=== PATIENT | male | born 1960 | race Caucasian/White ===

== ENCOUNTER 2019-10-11 09:09 | Emergency (ER) | payer MEDICAID, SELFPAY ==
[2019-10-11 09:20] VITALS: BP 145/87; PULSE 62; TEMP 36.6; O2SAT 98
--- NOTE | 2019-10-11 10:07 | DI.RAD_ITS ---
EXAM: XR RIBS LT W PA LAT CHEST CLINICAL HISTORY: fall/pain TECHNIQUE: COMPARISON: CR CHEST 2 VIEWS PA,LAT from 03/14/2016 FINDINGS: PA and lateral chest and multiple views of the left ribs were obtained. Note is made of an old unhea led right 8th rib fracture. No evidence of acute left rib fracture. Lungs are clear and well expanded except for minimal atelect asis at left lung base. No pleural effusion seen. No pneumothorax. IMPRESSION: No evidence of acute abnormality. RADIATION DOSE DELIVERED: Total DLP
--- NOTE | 2019-10-11 10:43 | ED.GENADUL_ITS ---
Discharge Plan Disposition Patient Disposition: HOME Condition: Stable Discharge Details Chief Complaint: Chest/Rib Clinical Impression: Contusion of ribs Primary Care Provider: Tres Mccauley ED Provider: Piter Alvarenga Home Meds and New Rx's Prescriptions: New oxycodone-acetaminophen [Percocet] 5-325 mg tablet 1 tab PO Q8H PRNQty: 8 RF: 0 No Action No Known Home Meds RF: 0 Discharge Instructions Instructions: Rib Contusion (ED) Additional Instructions: As we discussed x-ray was unremarkable but a subtle fracture could still be present. Use incentive spirometer as directed to avoid developing pneumonia. Percocet as directed, may cause drowsiness and/or constipation. Consider taking [id number] stool softener while taking pneumonia. You may use waao-yir-kztfkah anti-inflammatory medication such as Motrin as directed for symptomatic control. Please watch for new or worsening symptoms and return to the ER for any concerns. I do recommend reaching out your primary care provider later today or tomorrow for prompt outpatient reevaluation Medical Decision Making 58-year-old gentleman presents for evaluation status post fall yesterday while standing on a chair, sustaining a fall down to the ground but for struck the chair in the process. Complains of left lateral and posterior chest wall discomfort. He reports the pain is moderate at rest, worse with movement or deep breathing. He does appear uncomfortable with movement although he is n ontoxic-appearing. Blood pressure 145/87, O2 sat 98% room air, pulse in the 60s. He has diffuse discomfort over his ribs but no point tenderness over one specific rib or any crepitus. Extremely low suspicion for pneumothorax. He denies striking his head, LOC, neck pain, abdominal pain, numbness, tingling, weakness. There is not appear to be any distracting injury. Will obtain x-ray of his left ribs and chest for evaluation of bony abnormality and/or pneumothorax. Patient comfortable with this plan X-ray initially read by me and then confirmed by radiology as no acute abnormality. Discussed x-ray findings with patient. He is relieved. We discussed that subtle rib fractures can certainly be challenging to see on a plain film and that if his symptoms persist he may need repeat films and/or outpatient CT. He was given an incentive spirometer with teaching. We discussed analgesia, will provide 8 tablets of Lortab recommend zqtt-yux-fbuizsx anti-inflammatories, and recommend prompt outpatient follow-up through his primary care provider. He was encouraged to return to the ER for new or worsening symptoms. Medical Records Medical records reviewed: Yes I reviewed the patient's medical records. HPI General Mode of arrival: ambulatory . Date/Time Provider Initiated Documentation: 10/11/19 09:20 . Limitations to Documentation: no limitations . Information obtained by: patient . HPI Narrative: This is a 58-year-old gentleman who denies significant past medical history. He presents reporting left rib discomfort. Yesterday evening he was standing on a chair attempting to do some work, slipped, falling down to the ground or for struck the left side of his ribs on the chair. He reports that the pain is moderate at rest but worse with movement, engaging his core, or taking a deep breath. He sustained an abrasion to his right forearm as well. He denies striking his head, loss of consciousness, neck pain, visual changes, chest pain, shortness of breath no abdominal pain, nausea, vomiting, numbness, tingling, weakness, incontinence. He reports to me that he is primarily concerned about the potential for broken ribs. Related Data Home Medications Medication Instructions Recorded Confirmed Unknown [No Known Home Meds] 03/14/16 10/11/19 oxycodone-acetaminophen [Percocet] 1 tab PO Q8H PRN #8 tab 10/11/19 Previous Rx's Medication Instructions Recorded oxycodone-acetaminophen [Percocet] 1 tab PO Q8H PRN #8 tab 10/11/19 Allergies Allergy/AdvReac Type Severity Reaction Status Date / Time No Known Allergies Allergy Unverified 10/11/19 09:26 General Stated Complaint: Chest/Rib ABDON: 3 Review of Systems Constitutional Constitutional: Denies fever(s), Denies headache(s) and Denies weakness Eyes Eyes: Denies change in vision ENT Ears, Nose, Mouth, and Throat: Denies headache(s) and Denies neck pain Cardiovascular Cardiovascular: Denies chest pain and Denies dyspnea Respiratory Respiratory: Denies cough and Denies dyspnea Gastrointestinal Gastrointestinal: Denies abdominal pain, Denies nausea and Denies vomiting Genitourinary Genitourinary: Denies dysuria Musculoskeletal Musculoskeletal: Reports back pain, Denies neck pain, Denies numbness and Denies tingling Integumentary/Breasts Skin/Breast: Denies rash Neurologic Neurologic: Denies headache(s), Denies numbness, Denies tingling and Denies weakness [facility] Social History Smoking/Tobacco Use Status: Current every day Tobacco Type: cigarettes Alcohol Intake: never Drug use: Never Substance use type: does not use Do you feel safe at home: Yes Do you feel safe in your relationship?: Yes Exam Const General: cooperative, healthy appearing, no acute distress and in distress mild (With movement or engaging his core, appears uncomfortable) Orientation: alert, awake and oriented x3 HENMT Head: normal to inspection, normocephalic and atraumatic Ears: hearing grossly normal bilaterally General nose exam: external nose normal Face and sinus: normal facial exam Mouth: moist mucous membranes Eyes Conjunctivae: conjunctivae normal Sclera: sclerae normal Neck Neck: normal visual inspection, full ROM, trachea midline, supple and nontender Chest Chest: normal inspection of the chest, no crepitus, tenderness rib left posterio r-axillary line involving the 6th rib, involving the 7th rib, involving the 8th rib, involving the 9th rib and involving the 10th rib and other (No erythema or ecchymosis.) Resp Effort & Inspection: normal respiratory effort and able to speak in complete sentences Auscultation: clear to auscultation bilaterally Cardio Rate: regular rate Rhythm: regular rhythm GI Palpation: soft and nontender Back/Spine/Pelvis Back: no CVA tenderness and back tenderness (Left thoracic region, diffuse, no midline tenderness) Cervical Spine: normal cervical lordosis, cervical ROM normal and No pain with cervical ROM Thoracic/Lumbar Spine: thoracic and lumbar spine normal to inspection and No thoracic spinal tenderness Pelvis: no pain with anterior-posterior compression and no pain with lateral compression Skin General skin exam: no rashes or lesions noted Trauma: abrasion (Right forearm) Neuro General: patient alert, patient awake, patient oriented x3, moves all extremities and no focal motor deficits Cognition: normal cognition Speech: speech normal Gait: normal gait Motor: muscle tone normal throughout and strength 5/5 throughout Sensory Exam: no sensory deficits noted Extrem General: normal to inspection (Other than abrasion already stated), full ROM and capillary refill normal Psych Appearance: grossly normal Mental Status: mental status grossly normal Course Vital Signs Vital signs: Vital Signs Temperature 36.6 C 10/11/19 09:20 Pulse 62 10/11/19 09:20 Blood Pressure 145/87 H 10/11/19 09:20 Pulse Oximetry 98 10/11/19 09:20 Temperature 36.6 C 10/11/19 09:20 Temperature Source Temporal Artery Scan 10/11/19 09:20 Pulse 62 10/11/19 09:20 Respiratory Effort Non-Labored 10/11/19 09:24 Blood Pressure 145/87 H 10/11/19 09:20 Blood Pressure Position Sitting 10/11/19 09:20 Pulse Oximetry 98 10/11/19 09:20 Oxygen Delivery Method Room Air 10/11/19 09:20 Oxygen Flow Rate 0 10/11/19 09:20 Pain Level 10 10/11/19 09:20
== END 2019-10-11 11:02 | disposition home or self-care (01) ==
PROVIDERS: Emergency Provider Physician Assistant; PCP Family Medicine
DX: S20.212A Contusion of left front wall of thorax, initial encounter (principal); W07.XXXA Fall from chair, initial encounter
CPT/HCPCS: 99284; 71046; 71100; 99283

== ENCOUNTER 2020-07-23 12:46 | Emergency (ER) | payer MEDICAID, SELFPAY ==
[2020-07-23 12:52] VITALS: BP 113/89; PULSE 99; RESP 18; TEMP 37.1; O2SAT 96
--- NOTE | 2020-07-23 13:13 | W.ED.GENAD ---
Discharge Plan Disposition Patient Disposition: HOME Condition: Stable Discharge Details Clinical Impression: Puncture wound of left palm Primary Care Provider: Tres Mccauley ED Provider: Jessica Zelaya Home Meds and New Rx's Prescriptions: No Action No Known Home Meds RF: 0 Discharge Instructions Instructions: Puncture Wound (ED), Steristrips (ED) Additional Instructions: At this time Steri-Strips have been applied and wound will heal on its own. If you have another laceration please come in before 8 to 12 hours for possible suture repair. Please be seen sooner for any signs of infection including increased redness, swelling, red streaks going up your hand, drainage, foul odor or severe increased pain. Keep clean and dry. Allow wound to air dry at least 2 hours a day. No soaking. May wash under running soap and water once daily. Referrals: Tres Mccauley [Primary Care Provider] - Discharge Data Discharge Date/Time-TO BE ENTERED AT DEPARTURE: 07/23/20 13:32 Medical Decision Making 59-year-old male presents to the ER with a left palm puncture wound which occurred 24 hours ago accidentally while grabbing some knives. Patient presents with Band-Aid and electrical tape in place. Bleeding is controlled at this time. Upon initial exam the wound edges are beginning to be macerated with the increased moisture. No visualized foreign body, patient has full range of motion of and all fingers. Distal circulation sensation movement intact. Intact point discrimination and opposition. At this time I do not feel that suturing is appropriate due to increased risk of infection. Wound is greater than or equal to 24 hours old. Wound has begun healing by secondary intention. Wound was extensively irrigated and cleaned with chlorhexidine scrub by myself and social staff worker. Laceration was anesthetized using 1% lidocaine with epi prior to cleaning for patient comfort. Steri-Strips applied and clean dressing placed. Patient instructed on home care, verbalized understanding. Discuss strict return instructions to return for any signs of infection. This text was generated using [employer] system, please disregard any oddities of phrase or misspellings. HPI General Mode of arrival: ambulatory. Date/Time Provider Initiated Documentation: 07/23/20 13:02. Limitations to Documentation: no limitations. Information obtained by: patient. HPI Narrative: 59-year-old male presents to the ER chief complaint of left palm puncture wound which occurred yesterday afternoon approximately 24 hours prior to arrival. States he was doing dishes when his hand slipped hitting a steak knife puncturing the thenar eminence just below the base of his left thumb on the palmar side. He covered it with a Band-Aid and some electrical tape. Bleeding is controlled upon arrival. Patient is declining tetanus vaccination at this time. Full range of motion noted on exam. Related Data Home Medications Medication Instructions Recorded Confirmed Unknown [No Known Home Meds] 03/14/16 07/23/20 Allergies Allergy/AdvReac Type Severity Reaction Status Date / Time No Known Allergies Allergy Unverified 07/23/20 12:58 General Stated Complaint: Laceration ABDON: 4 Review of Systems All systems reviewed & are unremarkable except as noted in HPI and below Integumentary/Breasts Skin/Breast: Reports wounds (Left palm puncture wound occurred 24 hours ago) [facility] Social History Smoking/Tobacco Use Status: Current every day Tobacco Type: cigarettes Smoking risk assessment performed?: Yes Alcohol Intake: never Drug use: Never Substance use type: does not use Do you feel safe at home: Yes Do you feel safe in your relationship?: Yes Exam Extrem Left upper extremity: full ROM, normal capillary refill and hand Details: neuromotor exam normal, foreign body (None visualized) and puncture wound; no crepitus Hand/finger images: 1. Stellate puncture wound noted to the left thenar eminence just at the base of the left thumb. Full range of motion noted to the thumb. Point discrimination intact. Cap refill less than 2 seconds. No other injuries noted. Course Vital Signs Vital signs: Vital Signs Temperature 37.1 C 07/23/20 12:52 Pulse 99 H 07/23/20 12:52 Respiratory Rate 18 07/23/20 12:52 Blood Pressure 113/89 07/23/20 12:52 Pulse Oximetry 96 07/23/20 12:52 Temperature 37.1 C 07/23/20 12:52 Temperature Source Temporal Artery Scan 07/23/20 12:52 Pulse 99 H 07/23/20 12:52 Respiratory Rate 18 07/23/20 12:52 Respiratory Effort Non-Labored 07/23/20 12:57 Blood Pressure 113/89 07/23/20 12:52 Blood Pressure Position Sitting 07/23/20 12:52 Pulse Oximetry 96 07/23/20 12:52 Oxygen Delivery Method Room Air 07/23/20 12:52 Oxygen Flow Rate 0 07/23/20 12:52 Pain Level 10 07/23/20 12:52
== END 2020-07-23 13:32 | disposition home or self-care (01) ==
PROVIDERS: Emergency Provider Registered Nurse Emergency; PCP Family Medicine
DX: S61.432A Puncture wound without foreign body of left hand, initial encounter (principal); W26.0XXA Contact with knife, initial encounter
CPT/HCPCS: 99282

== ENCOUNTER 2022-09-07 19:01 | Emergency (ER) | payer MEDICAID, SELFPAY ==
[2022-09-07 19:13] VITALS: BP 135/75; PULSE 82; RESP 14; TEMP 36.5; O2SAT 98
--- OUTSIDE RECORDS SUMMARY | 2022-09-07 19:18 | XMS_ITS | Continuity of Care Document ---
Author Name Unknown Organization [facility] Address [address] [place] [address] Care Team Providers Care Story Teller Name Role Phone Tres Chen DO Primary Care Physician Encounter [facility] FIN NBR [id number] Date(s): 06/05/22 - 06/05/22 [facility] [address] [place] [address]- Discharge Disposition: Home or Self Care Attending Physician: IRINA Wiley Admitting Physician: IRINA Wiley Allergies, Adverse Reactions, Alerts No Known Medication Allergies Medications albuterol 90 mcg/inh aerosol inhaler See Instructions, PRN as needed for wheezing, takes 2 puffs as needed for sob due to COPD, 0 Refill(s) Start Date: 06/05/22 Status: Ordered Problem List Condition Confirmation Course Effective Dates Status Health St atus Informant Fracture 1 Confirmed 10/2010 Active S/P foot surgery, left 2 Confirmed 06/2015 Active H/O left knee surgery Confirmed Active H/O right knee surgery 3 Confirmed Active Inguinal hernia Confirmed Active Recurrent hernia Confirmed Active Rotator cuff tear 4 Confirmed 04/24/14 Active 1fx ribs and punched lung at work 2left foot surgery- bone spurs 3right knee cartilage repair 4left rotator cuff / biceps muscle repair Procedures Procedure Date Related Diagnosis Body Site Status Inject kidney - local action 11/2019 Completed Rotator cuff repair 1 04/23/14 Com pleted Dx Laparoscopy and recurrent Hernia Repair 2 06/26/11 Completed Colonoscopy 3 Completed Knee surgery, left Comple edgar Laparoscopic repair of ingui nal hernia 4 Completed Right Knee Cartilage Repair Completed 1left rotator cuff / biceps muscle repair 2Dr [place] 3colonoscopy 3 yrs ago 4Dr [place] Results Radiology Reports * Exam Date Time Procedure Performing Provider Status 06/05/22 9:48 AM XR Foot Complete 3+ Views Left Chrissy Lafleur rn; Auth (Verified) Notes: (XR Foot Complete 3+ Views Left) Reason For Exam: pain in foot and toes left XR Foot Complete 3+ Views Left EXAM DESCRIPTION: XR Foot Complete 3+ Views Left 06/05/2022 INDICATION: PAIN IN FOOT AND TOES LEFT COMPARISON: 03/21/2015 IMPRESSION: No acute fracture or dislocation First MTP joint osteoarthritic changes with joint space narrowing, osteophyte formation and mild subchondral cyst formation, worse since prior study. Otherwise no significant regional arthritic changes Small punctate opacity overlying the distal 5th toe suspicious for small foreign body. JOB #: [id number] Final Signed by: Gabino Cooper MD Signed (Electronic Signature): 06/05/2022 10:00 am Social History Social History Type Response Tobacco Current everyday tob acco user Tobacco Use:. 1/2-1ppd per day. Sex XR Foot - left GE 3 Views * Gabino Cooper MD: VERIFY, VERIFY Event Display: Report EXAM DESCRIPTION: XR Foot Complete 3+ Views Left 06/05/2022 INDICATION: PAIN IN FOOT AND TOES LEFT COMPARISON: 03/21/2015 IMPRESSION: No acute fracture or dislocation First MTP joint osteoarthritic changes with joint space narrowing, osteophyte formation and mild subchondral cyst formation, worse since prior study. Otherwise no significant regional arthritic changes Small punctate opacity overlying the distal 5th toe suspicious for small foreign body. JOB #: [id number] Final Signed by: Gabino Cooper MD Signed (Electronic Signature): 06/05/2022 10:00 am Patient Care team information Care Team Personnel Name: Tres Chen DO Position: Physician Member Role: Primary Care Physician Address: Address: [address] [place] [phone] [place]
--- OUTSIDE RECORDS SUMMARY | 2022-09-07 19:18 | XMS_ITS | Continuity of Care Document ---
Author Name Unknown Organization [facility] Address [address] [place] [address] Care Team Providers Care Printed Circuit Boards Inspector Name Role Phone Tres Chen DO Primary Care Physician [phone] Encounter [facility] [facility] NBR [id number] Date(s): 06/05/22 - 06/05/22 [facility] [address] [place], [place] [address] Encounter Diagnosis Pain in unspecified toe(s)(Discharge Diagnosis) - 06/05/22 Pain of foot and toes(Discharge Diagnosis) - 06/05/22 Discharge Disposition: Home or Self Care Attending Physician: IRINA Wiley Allergies, Adverse Reactions, Alerts No Known Medication Allergies Functional Status 06/05/22 Other exposure to Infectious Disease Non e Medications albuterol 90 mcg/inh aerosol inhaler See [...] rotator cuff / biceps muscle repair 2Dr Mingo 3colonoscopy 3 yrs ago 4Dr [place] Vital Signs Most recent to oldest [Reference Range]: 1 Peripheral Pulse Rate [60-100 bpm] 75 bp m (06/05/22 8:50 AM) Blood Pressure [90-140/60-90 mmHg] 128/8 0mmHg (06/05/22 8:50 AM) Weight 84.9 kg (06/05/22 8:50 AM) Weight Measured (lbs) 187.172 lb (06/05/22 8:50 AM) [place] Body Weight Calculated 64.37 kg (06/05/22 8:50 AM) Height 168.27 cm (06/05/22 8:50 AM) Height/Length Measured (inches) 66.25 in ch (06/05/22 8:50 AM) BSA Measured 1.99 m2 (06/05/22 8:50 AM) Body Mass Index 29.98 kg/m2 (06/05/22 8:50 AM) Social History Social History Type Response Tobacco Current everyday tob acco user Tobacco Use:. 1/2-1ppd per day. Sex Hospital Discharge Instructions Follow Up Care 05/30/2022 16:29:31 With:IRINA Wiley Address: [address] [place] [phone] When: only if needed Physician Outpatient Note * IRINA Wiley: PERFORM Event Display: Office Clinic Note Physician Authored Date: [id number] JAMIR GROSS :1960 Age:61 years Sex:Male Visit Date:06/05/2022 Primary Care Physician: Tres Chen DO Chief Complaint Requesting a referral to [facility] for left pain. ??Had surgery on lefback in 2016. ??Shortly after surgery he states he stubbed his left big toe on a rock and thought he maybe he had broken it.??Never followed up with podiatry. ??Pain has gotten worse. History of Present Illness Patient indicates visit for left foot pain since 6-7 years. He had surgery for bone spurs and arthritis about 7 years ago. His pain has increased and he requests referral to podiatry for possible surgical repair. ?? He has had multiple surgeries on his knees, shoulders. Review of Systems Constitutional:?No??fevers,?No??chills,?No??sweats ?? Musculoskeletal:??No??back pain,??No??neck pain,??Positive for??joint pain,??Positive for??muscle pain,??Positive for??decreased range of motion left foot and toes Integumentary:?No??rash,?No??pruritus,?No??abrasions Neurologic: Alert & oriented X 4 Psychiatric:?No??anxiety,?No??depression Physical Exam Vitals & Measurements HR:??75??(Peripheral)?? BP:??128/80?? SpO2:??97%?? HT:??168.27??cm?? WT:??84.9??kg?? BMI:??29.98?? BSA:??1.99?? General: Alert and oriented, well nourished,?No??acute distress ?? Musculoskeletal:?Abnormal?? range of motion and strength,?Positive for??tenderness,?Positive for??swelling?? left foot and toes Skin: Skin is warm, dry and pink,?No??rashes,?No??lesions Neurologic: Awake, alert and oriented X4, Psychiatric: Cooperative, appropriate mood and affect Assessment/Plan 1.??Pain of foot and toes??M79.672 Ordered: XR Foot Complete 3+ Views Left, 06/05/22, Routine, Reason: pain in foot and toes left, Transport Mode: Ambulatory, Pain of foot and toes ?? Pain in unspecified toe(s)??M79.676 ?? Future Orders XR Foot Complete 3+ Views Left, 06/05/22, Routine, Reason: pain in foot and toes left, Transport Mode: Ambulatory, Pain of foot and toes Referral Orders Referral Management, Medical Service: Podiatry, Reason: ongoing pain in left foot, previous surgery done at [facility] podiatry, Start: 06/05/22, Urgent:, Instructions: Dr Bess[facility]. Follow Up Instructions With When Contact Information IRINA Wiley Only if needed [address] [place] [address] Additional Instructions: Problem List/Past Medical History Ongoing Fracture H/O left knee surgery H/O right knee surgery Inguinal hernia Recurrent hernia Rotator cuff tear S/P foot surgery, left Historical No qualifying data Procedure/Surgical History ???Inject kidney - local action (11/2019)???Rotator cuff repair (04/24/2014)???Dx Laparoscopy and recurrent Hernia Repair (06/27/2011)???Colonoscopy???Knee surgery, left???Laparoscopic repair of ingui nal hernia???Right Knee Cartilage Repair Medications albuterol 90 mcg/inh aerosol inhaler, See Instructions, PRN Allergies No Known Medication Allergies Social History Alcohol Never Electronic Cigarette/Vaping Electronic Cigarette Use: Never. Tobacco Current everyday tobacco user Tobacco Use:. 1/2-1ppd per day. Family History Diabetes mellitus: Mother. [place] - myocardial infarction: Mother and Father. Family Member(s): ?? FATHER, at age: 78 Years. Cause of : [place] Electronically Signed on 06/05/22 09:38 AM IRINA Wiley Patient Care team information Care Team Personnel Name: Tres Chen DO Position: Physician Member Role: Primary Care Physician Address: Address: [address] [place] [phone] [place]
--- NOTE | 2022-09-07 20:24 | ED.GENADUL_ITS ---
Discharge Plan Disposition Patient Disposition: Home Discharge Details Clinical Impression: Abrasion of cornea, right, Eyelid laceration, right Primary Care Provider: Tres Mccauley ED Provider: Hosea Souza Home Meds and New Rx's Prescriptions: No Action albuterol sulfate [ProAir HFA] 90 mcg/actuation HFA aerosol inhaler 2 puff inhalation Q6H PRN Discharge Instructions Instructions: Corneal Abrasion (ED), Care For Your Absorbable Stitches (ED) Additional Instructions: Please keep the area clean and dry. Monitor closely for any redness, drainage or discharge. Absorbable sutures will come out on their own in 10 to 12 days. If they have not you can gently rub warm soapy water on the area to help them come off. If you come back to the emergency department here it will be free of charge for the suture removal. For long-term scar cosmesis, please make sure to avoid any sun to the area for the next year. Apply moisturizer or vitamin E to the area twice daily for the next 12 months for the best chance of wound/scar medication. Please take a daily multivitamin as well as this can help in wound healing. For your corneal abrasion please apply the erythromycin ointment 2-3 times per day. Follow-up closely with Dr. Jolley if you continue to have eye pain. If you notice any worsening of your symptoms, or any new symptoms such as vomiting, diarrhea, fever, chills, shortness of breath, chest pain, numbness, weakness, or fainting , please return immediately to the emergency department for reevaluation. Please follow up with your primary care provider as soon as possible for reassessment and reevaluation. As always, it was a pleasure participating in your medical care today. Referrals: [facility] [Outside] Discharge Data Discharge Date/Time-TO BE ENTERED AT DEPARTURE: 09/07/22 20:36 Medical Decision Making 61-year-old male who is tetanus was updated within the last 5 years presents today for laceration to the right. Patient states that he was working at his desk when he moved his head and unfortunately clipped the edge of a cabinet. This did cause a laceration to his eye. He came to the ER for further assessment. He denies any vision change. He denies any numbness or tingling. No other complaints at this time. Exam demonstrates a small 1.5 cm laceration to the patient's right upper eyelid, as well as a small corneal abrasion on the right lateralmost aspect. Concern is for mild corneal abrasion and laceration. The laceration was sutured with 2 Chromic Gut sutures, patient tolerated this well. Pain was resolved with erythromycin ointment. No other evidence of significant trauma or abnormality. Patient stable for discharge. I have extensively reviewed the treatment plan and discharge instructions with the patient. I have addressed all patient concerns at this time. The patient was made aware of what symptoms to monitor for that would warrant a return to the emergency department. Discussed the plan with the patient, they demonstrate verbal understanding and agreement with our assessment and plan at this time. The documentation in this chart was dictated using [employer] dictation software. Please excuse any dictation errors. HPI General Date/Time Provider Initiated Documentation: 09/07/22 20:07 . HPI Narrative: 61-year-old male who is tetanus was updated within the last 5 years presents today for laceration to the right. Patient states that he was working at his desk when he moved his head and unfortunately clipped the edge of a cabinet. This did cause a laceration to his eye. He came to the ER for further assessment. He denies any vision change. He denies any numbness or tingling. No other complaints at this time. Related Data Home Medications Medication Instructions Recorded Confirmed albuterol sulfate 90 mcg/actuation 2 puff inhalation Q6H PRN 04/03/22 04/03/22 aerosol inhaler (ProAir HFA) Allergies Allergy/AdvReac Type Severity Reaction Status Date / Time No Known Allergies Allergy Unverified 04/03/22 09:01 General Stated Complaint: EyeProblem ABDON: 4 Review of Systems All systems reviewed & are unremarkable except as noted in HPI and below PFSH All Active Problems Abrasion of cornea, right (Acute) Eyelid laceration, right (Acute) Conductive hearing loss, external ear (Acute) Impacted cerumen, bilateral (Acute) Puncture wound of left palm (Acute) Surgical History H/O colonoscopy H/O foot surgery H/O knee surgery History of herniorrhaphy Social History Smoking/Tobacco Use Status: Current every day Tobacco Type: cigarettes Smoking risk assessment performed?: Yes Alcohol Intake: never Drug use: Never Substance use type: does not use Do you feel safe at home: Yes Do you feel safe in your relationship?: Yes Exam Narrative Exam Narrative: 1.Const: Well-nourished, Well-developed, appearing stated age 2.Eyes: PERRL, no conjunctival injection, and symmetrical lids. Small 1.5 cm laceration for the right upper lid. No through and through laceration. Corneal staining reveals evidence of mild conjunctival abrasion on the lateral most aspect of the conjunctiva for the right eye. Negative Charles sign. No other abnormalities noted on my exam. 3.ENT: Atraumatic external nose and ears. Moist MM. Neck: Symmetric, trachea midline, No thyromegaly. 4.CVS: +S1/S2, No murmurs or gallops. Peripheral pulses 2+ and equal in all extremities. Brisk capillary refill in all extremities. 5.RESP: Unlabored respiratory effort. Clear to auscultation bilaterally. No wheezes rales or rhonchi 6.GI: Soft, Nontender/Nondistended, No hepatosplenomegaly. No guarding or rebound. 7.MSK: Normocephalic/Atraumatic, Extremities w/o deformity or ttp No cyanosis or clubbing, Normal movement of all extremities 8.Skin: Warm, Dry. No rashes or lesions. 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 Sensation grossly intact, no focal neurologic deficits. 10.Psych: (AAO) x3. Appropriate mood and affect Course Vital Signs Vital signs: Vital Signs Temperature 36.5 C 09/07/22 19:13 Pulse 82 09/07/22 19:13 Respiratory Rate 14 09/07/22 19:13 Blood Pressure 135/75 09/07/22 19:13 Pulse Oximetry 98 09/07/22 19:13 Temperature 36.5 C 09/07/22 19:13 Temperature Source Temporal Artery Scan 09/07/22 19:13 Pulse 82 09/07/22 19:13 Respiratory Rate 14 09/07/22 19:13 Blood Pressure 135/75 09/07/22 19:13 Blood Pressure Position Supine 09/07/22 19:13 Pulse Oximetry 98 09/07/22 19:13 Oxygen Delivery Method Room Air 09/07/22 19:13 Oxygen Flow Rate 0 09/07/22 19:13 Pain Level 0 09/07/22 19:13 Procedures Laceration Laceration 1: Site: face Side (If applicable): right Size (cm): 1.5 Description: linear Depth: simple, single layer Local Anesthetic: Lidocaine 1% Amount of anesthesia used (mL): 3 Pre-repair: wound explored, irrigated extensively and deep structures intact Skin layer closed with: other (Chromic gut) Size (cm): 5-0 Number of sutures: 2 Technique: simple, interrupted
== END 2022-09-07 20:36 | disposition home or self-care (01) ==
PROVIDERS: Emergency Provider Student in an Organized Health Care Education/Training Program; PCP Family Medicine
DX: S01.111A Laceration without foreign body of right eyelid and periocular area, initial encounter (principal); S05.01XA Injury of conjunctiva and corneal abrasion without foreign body, right eye, initial encounter; F17.210 Nicotine dependence, cigarettes, uncomplicated; W22.03XA Walked into furniture, initial encounter; Y93.89 Activity, other specified; Y92.89 Other specified places as the place of occurrence of the external cause; Y99.0 Civilian activity done for income or pay
CPT/HCPCS: 12001; 99282; 99283

== ENCOUNTER 2023-04-28 04:33 | Outpatient (CLI) | payer MEDICAID, SELFPAY ==
[2023-04-28] MEDS: Inhaler, Assist Device 1 EACH MC (09:43)
[2023-04-28] MEDS: Levalbuterol HFA 15 GM INH 4 PUFF IH (09:43)
--- NOTE | 2023-04-28 15:26 | W.PFT ---
Date of service: 04/28/23 Time of Service: 08:02 Pulmonary Function Test Result Indications: COPD Interpretation Spirometry: There is moderate airflow limitation. No bronchodilator response. Lung Volumes: There is hyperinflation and air trapping. Diffusion Capacity: Normal diffusion Airway Pressure: Normal airways resistance Impression Moderate airflow limitation with air trapping and a normal diffusion. Clinical Correlation therefore is recommended.
== END 2023-04-28 04:34 | disposition home or self-care (01) ==
PROVIDERS: PCP Family Medicine; Visit Provider Physician Assistant Surgical
DX: J44.9 Chronic obstructive pulmonary disease, unspecified (principal); F17.210 Nicotine dependence, cigarettes, uncomplicated
CPT/HCPCS: 94060; 94726; 94729

== ENCOUNTER 2024-10-10 08:55 | Emergency (ER) | payer MEDICAID, SELFPAY ==
[2024-10-10 09:16] VITALS: BP 135/91; PULSE 81; RESP 20; TEMP 36.6; O2SAT 97
--- NOTE | 2024-10-10 09:30 | DI.RAD_ITS ---
Exam(s) XR RIBS RT W PA LAT CHEST EXAM: XR RIBS RT W PA LAT CHEST CLINICAL HISTORY: new pain, remote fx TECHNIQUE: 2D digital imaging was performed.Six images were obtained. COMPARISON: CR CHEST 2 VIEWS PA,LAT from 03/14/2016 CR XR RIBS LT W PA LAT CHEST from 10/11/2019 FINDINGS: MEDIASTINUM: Normal. HEART: Normal. PULMONARY VASCULATURE: Normal. LUNGS: The lungs appear hyperinflated with flattened diaphragms suggesting underlying COPD. PLEURAL SPACE: No pleural effusion or pneumothorax. BONE:Normal. RIGHT RIBS: There are stable old right rib fracture deformities. No acute displaced rib fracture is identified. OTHER FINDINGS:Normal. IMPRESSION: 1. No acute pulmonary findings. 2. No acute rib abnormalities identified. DATA REPOSITORY: RADIATION DOSE DELIVERED:
[2024-10-10] MEDS: Acetaminophen 500 MG TAB 1000 MG PO (09:42)
[2024-10-10] MEDS: Ibuprofen 600 MG TAB PO (09:42)
[2024-10-10] MEDS: Lidocaine 5% Patch 1 PATCH TP (09:42)
--- NOTE | 2024-10-10 10:21 | ED.GENADUL_ITS ---
Discharge Plan Disposition Patient Disposition: Home Condition: Stable Discharge Details Clinical Impression: Closed fracture of rib of right side Primary Care Provider: Carol Cardenas ED Provider: Lincoln Mccartney Home Meds and New Rx's Prescriptions: New lidocaine 5 % adhesive patch,medicated 1 patch topical DAILY Qty: 15 0RF Rx Instructions: leave on most painful area for up to 12 hrs tramadol 50 mg tablet 50 mg PO BID PRN (Reason: severe pain (scale score 7-10)) Qty: 10 0RF Continued Stiolto Respimat 2.5-2.5 mcg/actuation mist 2 puff inhalation DAILY Qty: 4 12RF Discharge Instructions Instructions: How to Use an Incentive Spirometer, Rib Fracture or Bruised Rib ED Additional Instructions: Please take ibuprofen 600 mg by mouth every 6-8 hours as needed for pain for the next few days. Please take tylenol (acetaminophen) 650 mg every 6 hours as needed for pain. Be sure to avoid any other medications that containe tylenol (acetaminophen). Use lidocaine patches as prescribed. Use incentive spirometer every 1-2 hours while awake for the next 1 week. Please follow-up with your primary care physician. Return to the emergency department immediately for any worsening or new concerning symptoms. Referrals: Carol Cardenas [Primary Care Provider, Medicine] Discharge Data Discharge Date/Time-TO BE ENTERED AT DEPARTURE: 10/10/24 11:05 HPI General Mode of arrival: ambulatory . Date/Time Provider Initiated Documentation: 10/10/24 09:17 . Limitations to Documentation: no limitations . Information obtained by: patient . HPI Narrative: HISTORY OF PRESENT ILLNESS Patient with history of rib fractures and pneumothorax in 2010 presents with right rib pain. 3-4 weeks ago, while constructing a wooden cover for his fuel tank, he applied excessive pressure, possibly causing a crack or fracture. Pain began 30-45 minutes post-incident, localized to previous injury site, worsened by coughing and sneezing. No other injuries reported. Tylenol and ibuprofen ineffective; ceased use last week. Difficulty sleeping and sitting in recliner. No prior pain in the area until this incident. No associated abd pain. Related Data Home Medications ?Medication ?Instructions ?Recorded ?Confirmed tiotropium 2.5 mcg-olodaterol 2.5 2 puff inhalation DA JEROD #4 grams 12/22/23 10/11/24 mcg/actuation mist for inhalation (Stiolto Respimat) lidocaine 5 % topical patch 1 patch topical DAILY #15 ea 10/10/24 10/11/24 tramadol 50 mg tablet 50 mg PO BID PRN severe pain 10/10/24 10/11/24 (scale score 7-10) #10 tabs Previous Rx's ?Medication ?Instructions ?Recorded tiotropium 2.5 mcg-olodaterol 2.5 2 puff inhalation DA JEROD #4 grams 12/22/23 mcg/actuation mist for inhalation (Stiolto Respimat) lidocaine 5 % topical patch 1 patch topical DAILY #15 ea 10/10/24 tramadol 50 mg tablet 50 mg PO BID PRN severe pain 10/10/24 (scale score 7-10) #10 tabs Allergies Allergy/AdvReac Type Severity Reaction Status Date / Time No Known Allergies Allergy Unverified 10/11/24 09:43 General Stated Complaint: Chest/Rib ABDON: 4 Review of Systems All systems reviewed & are unremarkable except as noted in HPI and below Exam Const General: cooperative and no acute distress Neck Neck: trachea midline and supple Chest Chest: no crepitus and tenderness rib (right lateral mid chest) Resp Auscultation: clear to auscultation bilaterally, no rales, no rhonchi and no wheezes Cardio Rate: regular rate and not tachycardic Rhythm: regular rhythm GI Palpation: soft, not firm, no guarding, no masses, not rigid and nontender Course Vital Signs Vital signs: Vital Signs Temperature 36.6 C 10/10/24 09:16 Pulse 81 10/10/24 09:16 Respiratory Rate 20 10/10/24 09:16 Blood Pressure 135/91 H 10/10/24 09:16 Pulse Oximetry 97 10/10/24 09:16 Temperature 36.6 C 10/10/24 09:16 Temperature Source Oral 10/10/24 09:16 Pulse 81 10/10/24 09:16 Respiratory Rate 20 10/10/24 09:16 Respiratory Effort Normal, Non-Labored 10/10/24 09:29 Respiratory Depth Normal 10/10/24 09:29 Respiratory Pattern Normal 10/10/24 09:29 Blood Pressure 135/91 H 10/10/24 09:16 Blood Pressure Position Sitting 10/10/24 09:16 Pulse Oximetry 97 10/10/24 09:16 Oxygen Delivery Method Room Air 10/10/24 09:16 Oxygen Flow Rate 0 10/10/24 09:16 Pain Level 5 10/10/24 09:16 Medical Decision Making ASSESSMENT AND PLAN Persistent right rib pain post-incident. Tenderness with lateral compression. Differential Diagnosis: - Rib fracture: Possible due to pressure during incident. X-ray shows stable old right rib fracture deformities. Plan: Lidocaine patch, high dose ibuprofen, Tylenol, tramadol. - Pneumothorax: Considered due to history. X-ray shows no acute pulmonary findings. Plan: Incentive spirometer. ED Course: - Lidocaine patch applied. - High dose ibuprofen and Tylenol administered. - X-ray interpreted: No acute pulmonary findings, no acute rib abnormalities, stable old right rib fracture deformities. Final Assessment: Persistent right rib pain. No acute rib abnormalities or pneumothorax on x-ray. Pain management initiated. Clinical Impression: - Rib contusion vs small fracture Disposition: Discharge: Home. Pain management and follow-up with PCP. Return precautions for worsening pain or respiratory symptoms. Follow-Up: Outpatient follow-up with PCP. Patient Education: Instructed on incentive spirometer use. Advised on pain management with prescribed medications. This document was written with the assistance of [employer]. The patient consented to its use. PFSH All Active Problems Closed fracture of rib of right side (Acute) Sensorineural hearing loss, bilateral (Acute) Nicotine dependence, cigarettes, uncomplicated (Acute) Tobacco user (Acute) Rotator cuff tear (Acute) Recurrent hernia (Acute) Inguinal hernia (Acute) Hallux limitus (Acute) Fracture (healed) treatment follow-up (Acute) COPD (chronic obstructive pulmonary disease) (Chronic) assessment test scale Conductive hearing loss, external ear (Acute) Impacted cerumen, bilateral (Acute) Puncture wound of left palm (Acute) Surgical History H/O foot surgery History of herniorrhaphy H/O knee surgery H/O colonoscopy Family History Mother Diabetes Myocardial infarction Father Myocardial infarction Social History Smoking/Tobacco Use Status: Current every day Tobacco Type: cigarettes Smoking risk assessment performed?: Yes Alcohol Intake: never Drug use: Never Substance use type: does not use Do you feel safe at home: Yes Do you feel safe in your relationship?: Yes
== END 2024-10-10 11:05 | disposition home or self-care (01) ==
PROVIDERS: Emergency Provider Student in an Organized Health Care Education/Training Program; PCP Registered Nurse
DX: S22.31XA Fracture of one rib, right side, initial encounter for closed fracture (principal); X58.XXXA Exposure to other specified factors, initial encounter
CPT/HCPCS: 99284; 99283; 71046; 71100

== ENCOUNTER 2024-11-04 09:15 | Emergency (ER) | payer MEDICAID, SELFPAY ==
[2024-11-04] VITALS (17 sets, daily range): BP systolic 131–165; BP diastolic 90–97; PULSE 57–85; RESP 14–20; TEMP 36.4; O2SAT 88–100
--- NOTE | 2024-11-04 09:15 | DI.RAD_ITS ---
Exam(s) XR TIB/FIB LT EXAM: XR TIB/FIB LT CLINICAL HISTORY: Trauma. TECHNIQUE: 2D digital imaging was performed of the left tibia and fibula. Three images were obtained. AP and lateral views were obtained. COMPARISON: No exams were available for comparison FINDINGS: BONES: No acute fracture is present. No bony destructive lesion is seen. Visualized portion of knee and ankle joints are unremarkable. SOFT TISSUE: Normal. IMPRESSION: No acute fracture or dislocation is present. DATA REPOSITORY: RADIATION DOSE DELIVERED:
--- NOTE | 2024-11-04 09:28 | DI.CT_ITS ---
Exam(s) CT CHEST/ABD/PEL W CT THORACIC LUMBAR SPINE REC EXAM: CT CHEST/ABD/PEL W and CT thoracic and lumbar spine recons CLINICAL HISTORY: trauma TECHNIQUE: Imaging Protocol: Axial computed tomography images with coronal and sagittal reformatted images were created and reviewed. Lung Computer Aided Detection (CAD) was utilized. CONTRAST MATERIAL: Intravenous: Omnipaque 350 contrast volume:100 mL Oral: No COMPARISON: CT CHEST WITHOUT CONTRAST from 11/24/[address] Thorax LDCT for CA Screen from 05/01/[address] THORACIC LUMBAR SPINE REC from 11/04/2024 FINDINGS: CHEST: Tracheobronchial tree: Patent where visualized. No evidence of bronchiectasis. Pulmonary parenchyma: Emphysematous changes are present in the lungs. There are no focal consolidating infiltrates present. No suspicious pulmonary nodules are present. Visualized thyroid gland: Unremarkable. Mediastinum and Misa: No dominant adenopathy or fluid collection. The esophagus is unremarkable. Pleura: No effusion or pneumothorax. Heart: The heart is not dilated. Mild coronary artery calcification is present. No pericardial effusion. Pulmonary arteries: No pulmonary emboli are identified. Aorta: Thoracic aorta non-dilated. There is no evidence of dissection. Lymph nodes: Within normal limits. Soft tissues: Unremarkable. Bones:There are fractures involving the lateral aspects of the right 7th 8th and 9th ribs. The 9th rib fracture is mildly displaced. There are old nonunited fractures involving the right 7th and 8th ribs. Thoracic spine recons: Age-appropriate degenerative changes are present. There is a right convex scoliosis. No acute fractures or subluxations are seen in the thoracic spine. Lumbar spine recons: Age-appropriate degenerative changes are present. No acute fracture or subluxation is present. ABDOMEN: Liver: Normal density. No measurable mass. Portal, Superior Mesenteric, and Splenic Veins: Unremarkable. Gallbladder and Biliary Tract: No radiodense calculus or dilation. Pancreas: Normal density, no abnormal calcifications or inflammatory process. Spleen: Normal. Adrenals: No masses seen. Kidneys: There is marked atrophy of the right kidney. There is compensatory hypertrophy of the left kidney. No radiodense stones or obstructive uropathy. No masses seen. Abdominal Aorta: Abdominal portion non-dilated. There is no evidence of dissection of the abdominal aorta. Mild atherosclerotic calcification is seen. Atherosclerotic calcification is seen of the iliac arteries bilaterally without significant stenosis. The superior mesenteric, celiac and inferior mesenteric arteries are unremarkable. The renal arteries are patent. The right renal artery is thin. Bowel: No obstruction or bowel wall thickening. Appendix is unremarkable. Peritoneal Cavity: No ascites, collection or mesenteric inflammatory response. No free air. Lymph Nodes: Within normal limits. Bones: Within normal limits for the patient's age. Soft Tissues: There are surgical clips seen in the right inguinal region. There is a small right fat containing inguinal hernia. There is a small fat containing umbilical hernia. PELVIS: Bladder: Symmetric distention, no gross wall thickening. Reproductive Organs: Unremarkable as visualized. Lymph Nodes: Within normal limits. Bones: Within normal limits. IMPRESSION: 1. There is no acute abdominal or pelvic organ injury. 2. There is no evidence of an acute fracture or subluxation of the thoracic or lumbar spine. 3. Acute fractures involving the lateral aspects of the right 7th, 8th and 9th ribs. 4. There is no evidence of a pneumothorax or pleural effusion at this time. RADIATION DOSE DELIVERED: 835.94mGy.cm Total DLP DATA REPOSITORY: All CT scans at this facility are submitted to the National Radiology Data Registry (NRDR) Dose Index Registry (DIR) with the [employer] (ACR). RADIATION OPTIMIZATION: All CT scans at this facility use at least one of these dose optimization techniques: automated exposure control; mA and/or kV adjustment per patient size (includes targeted exams where dose is matched to clinical indication); or iterative reconstruction.
--- NOTE | 2024-11-04 09:28 | DI.CT_ITS ---
Exam(s) CT HEAD CERV SPINE FACIAL WO EXAM: CT HEAD CERV SPINE FACIAL WO CLINICAL HISTORY: trauma. TECHNIQUE: Imaging Protocol: Axial computed tomography images with coronal and sagittal reformatted images were created and reviewed COMPARISON: No exams were available for comparison FINDINGS: CT Head: Ventricles and Extra axial spaces: Normal in size and morphology for the patient's age. Hemorrhage: None. Cerebral parenchyma: There is no evidence of an acute territorial infarct. Midline shift: None. Brainstem/Cerebellum: Normal. Calvarium: Normal. Visualized Paranasal sinuses/Mastoids: Clear. Soft Tissues: Unremarkable. CT Face: Facial Bones: There are mildly displaced nasal bone fractures. Sinuses and Mastoids: No air-fluid levels are present. Globes, extraocular muscles, optic nerves and retrobulbar fat: Normal. Upper aerodigestive tract: Normal. Mandible and bilateral temporomandibular joints: Normal. Soft tissues: Normal. CT Cervical Spine: Bones: No acute fracture or subluxation. Age-appropriate degenerative changes are present throughout the cervical spine. Soft Tissues: Unremarkable. Lung Apices: Emphysematous changes are seen in the lung apices. IMPRESSION: 1. No acute intracranial process. 2. No acute fracture or subluxation in the cervical spine. 3. Bilateral mildly displaced nasal bone fractures. RADIATION DOSE DELIVERED: !Error Total DLP DATA REPOSITORY: All CT scans at this facility are submitted to the National Radiology Data Registry (NRDR) Dose Index Registry (DIR) with the [employer] (ACR). RADIATION OPTIMIZATION: All CT scans at this facility use at least one of these dose optimization techniques: automated exposure control; mA and/or kV adjustment per patient size (includes targeted exams where dose is matched to clinical indication); or iterative reconstruction.
--- NOTE | 2024-11-04 09:31 | ED.GENADUL_ITS ---
Discharge Plan Disposition Patient Disposition: Home Condition: Stable Discharge Details Clinical Impression: Fracture of nasal bone, Multiple fractures of ribs of right side Primary Care Provider: Carol Cardenas ED Provider: Jessica Zelaya Home Meds and New Rx's Prescriptions: New lidocaine 5 % adhesive patch,medicated 1 patch topical DAILY PRN (Reason: Rib Fractures) Qty: 15 0RF Rx Instructions: leave on most painful area for up to 12 hrs No Action Stiolto Respimat 2.5-2.5 mcg/actuation mist 2 puff inhalation DAILY Qty: 4 12RF Patient Comments: doesnt take due to still smoking per pt 11/04/24 Discharge Instructions Instructions: Blunt Chest Trauma, Rib Fracture or Bruised Rib ED, Nose Fracture ED Additional Instructions: At this time it appears you have refractured your 7th and 8th ribs and also have an acute fracture on your ninth left rib. You have also broken your nose. Please try not to blow your nose if possible, you may apply small amount of Vaseline or clean the inside of your nose with a Q-tip. Do not put any sprays, go swimming or soaking to decrease the chance of infection. Please use the lidocaine patches as directed for pain. Please take Tylenol or Ibuprofen with food every 4-6 hours as needed for pain and swelling. Please ice your face and the swollen areas on and off for 20 minutes for the next couple of days. You will be sore however, please return to the emergency department if you have any worsening chest pain,, confusion, vomiting worsening shortness of breath, coughing up any blood or feeling sicker at any time. Follow up with primary care provider in 3-5 days. PLease call to make appt, and call ENT dr, for nasal fracture Return to ED sooner if any worsening or concerns. Referrals: Carol Cardenas [Primary Care Provider, Medicine] - 3 days Referral Note: Trauma, ER follow up Clinical Impression: Fracture of nasal bone; Multiple fractures of ribs of right side Serjio Bhat MD [ [facility] STAFF PHYSICIAN, ENT Surgical] - 1 week Referral Note: ER follow up call for appt, Nasal fracture Clinical Impression: Fracture of nasal bone HPI <Jessica Zelaya NP - Last Filed: 11/04/24 15:25> General Mode of arrival: ambulatory . Date/Time Provider Initiated Documentation: 11/04/24 09:20 . Limitations to Documentation: no limitations . Information obtained by: patient, RN notes reviewed and old records reviewed . HPI Narrative: 63-year-old male presents to the ER after falling approximately 8 foot off a stepladder he reports that the ladder came out from underneath him he landed on his right side he does have complaints of right rib pain, he was ambulatory to the department. He has abrasions noted to the bridge of his nose, forehead left anterior biggs and superficial abrasions to his upper extremities. He is alert and oriented x 4 denies any loss of consciousness denies any neck or back pain. He does have some right sided rib and right upper quadrant abdominal tenderness. Pelvis is stable. Related Data Home Medications ?Medication ?Instructions ?Recorded ?Confirmed tiotropium 2.5 mcg-olodaterol 2.5 2 puff inhalation DA JEROD #4 grams 12/22/23 11/04/24 mcg/actuation mist for inhalation (Stiolto Respimat) lidocaine 5 % topical patch 1 patch topical DAILY PRN Rib 11/04/24 Fractures #15 ea Previous Rx's ?Medication ?Instructions ?Recorded tiotropium 2.5 mcg-olodaterol 2.5 2 puff inhalation DA JEROD #4 grams 12/22/23 mcg/actuation mist for inhalation (Stiolto Respimat) lidocaine 5 % topical patch 1 patch topical DAILY PRN Rib 11/04/24 Fractures #15 ea Allergies Allergy/AdvReac Type Severity Reaction Status Date / Time No Known Allergies Allergy Unverified 11/04/24 09:24 General Stated Complaint: Fall/Non TraumaCriteria ABDON: 3 Review of Systems <Jessica Zelaya NP - Last Filed: 11/04/24 15:25> All systems reviewed & are unremarkable except as noted in HPI and below Constitutional Constitutional: Denies weakness ENT Ears, Nose, Mouth, and Throat: Denies dizziness and Denies neck pain Cardiovascular Cardiovascular: Reports chest pain, Reports chest pain at rest, Denies syncope, Denies lightheadedness and Denies radiating jaw, neck or arm pain Musculoskeletal Musculoskeletal: Reports as per HPI, Reports abnormal gait, Reports myalgias, Denies neck pain and Denies numbness Neurologic Neurologic: Denies abnormal speech, Reports abnormal gait, Denies confusion, Denies dizziness, Denies syncope, Denies numbness and Denies weakness Psychiatric Psychiatric: Denies confusion Exam <Jessica Zelaya NP - Last Filed: 11/04/24 15:25> Narrative Exam Narrative: General: Well Developed, Awake and Alert, conversant. Skin: Warm and Dry HEENT: Head: No palpable deformities, Normocephalic Eyes: Pupils PERRLA, EOM's intact. No periorbital eccymosis or step off Ears: Canal patent. Tympanic membranes are clear . No iverson's sign, no hemptympanum. Nose/Face: Abrasion to the bridge of his nose, swelling and tenderness, abrasion to his left frontal forehead, the remainder of facial bones nontender to palpation and stable with manipulation. Mouth/Throat: No intraoral trauma. Teeth and mandible are intact. Neck: No midline tenderness, no step off, no deformity to palpation of C-spine. Trachea midline. Chest: No surface trauma. without crepitus or deformity. Lungs clear to auscula tation bilaterally. Tenderness noted to his right thoracic rib cage, Heart: RRR, no rubs, murmurs or gallop. Abdomen: Does have some developing ecchymosis and contusion noted to his right flank and upper abdomen, tenderness palpation to his right upper quadrant. Pelvis: Nontender to palpation and stable to compression. Femoral pulses strong and equal Extremities: Left hematoma noted to the proximal anterior biggs with superficial abrasions and contusion, sensation intact. Peripheral pulses intact and equal. Neuro: ANO x4, GCS 15, cranial nerves II through XII intact. Motor and sensory exam nonfocal. Reflexes are symmetric. Course <Jessica Zelaya NP - Last Filed: 11/04/24 15:25> Vital Signs Vital signs: Vital Signs Temperature 36.4 C 11/04/24 09:21 Pulse 85 11/04/24 09:21 Respiratory Rate 20 11/04/24 09:21 Blood Pressure 165/95 H 11/04/24 09:21 Pulse Oximetry 97 11/04/24 09:21 Temperature 36.4 C 11/04/24 09:21 Temperature Source Oral 11/04/24 09:21 Pulse 85 11/04/24 09:21 Respiratory Rate 20 11/04/24 09:21 Blood Pressure 165/95 H 11/04/24 09:21 Blood Pressure Position Sitting 11/04/24 09:21 Pulse Oximetry 97 11/04/24 09:21 Oxygen Delivery Method Room Air 11/04/24 09:21 Oxygen Flow Rate 0 11/04/24 09:21 Pain Level 10 11/04/24 09:21 Medical Decision Making <Jessica Zelaya NP - Last Filed: 11/04/24 15:25> 63-year-old male presents to the ER after falling approximately 8 foot off a stepladder he reports that the ladder came out from underneath him he landed on his right side he does have complaints of right rib pain, he was ambulatory to the department. He has abrasions noted to the bridge of his nose, forehead left anterior biggs and superficial abrasions to his upper extremities. He is alert and oriented x 4 denies any loss of consciousness denies any neck or back pain. He does have some right sided rib and right upper quadrant abdominal tenderness. Pelvis is stable. E-FAST exam performed at bedside for trauma, difficult exam unable to visualize the right kidney, no obvious hypoechoic or free fluid however, patient very tender and contusions and ecchymosis already beginning to his right flank. Will plan on CT his head C-spine chest abdomen pelvis T and L-spine per trauma protocol. Differential diagnose includes not limited to rib fractures, abdominal trauma, pneumothorax, good lung sliding noted on right and left. Workup ordered including CBC CMP lipase, PT, acetaminophen IV 1 g, Zofran ODT and Flexeril 10 mg p.o. No leukocytosis hemoglobin hematocrit within normal limits 14.0 and 42.2, PT/INR within normal limits, sodium potassium also within normal limits, lipase 42, CT head C-spine shows displaced nasal bone fractures, no intracranial hemorrhage or C-spine fracture. CT chest abdomen pelvis T and L-spine shows acute rib fractures of #7, 8, 9 patient does have a history of recent rib fractures on the same side #7 and 8. No pneumothorax or pleural effusion. Please see official report. No acute intra-abdominal or other thoracic abnormalities. X-ray tib- fib shows no acute fracture. Discussed results with patient CT results he verbalized understanding. Discussed wound care, follow-up care with PCP and ENT. Was given lidocaine patches here in the department and a prescription for lidocaine patch. Di scussed strict return instructions to return for any increased shortness of breath, worsening chest pain not relieved by Tylenol ibuprofen, coughing up blood, abdominal pain, confusion dizziness or concerns. Given home care. Patient made hemodynamically stable throughout the remainder of her stay, alert and oriented and was ambulatory upon discharge from the department. Wound care was performed by ER staff and topical let applied for patient comfort. Referral for ENT and PCP given. This text was generated using [employer] dictation system, please disregard any oddities of phrase or misspellings. Imaging Data Radiologic Study: Imaging: CT Scan Radiologist's impression: IMPRESSION: 1. There is no acute abdominal or pelvic organ injury. 2. There is no evidence of an acute fracture or subluxation of the thoracic or lumbar spine. 3. Acute fractures involving the lateral aspects of the right 7th, 8th and 9th ribs. 4. There is no evidence of a pneumothorax or pleural effusion at this time. Radiologic Study #2: Imaging: CT Scan (Head face C-spine) Radiologist's impression: CT Face: Facial Bones: There are mildly displaced nasal bone fractures. Sinuses and Mastoids: No air-fluid levels are present. Globes, extraocular muscles, optic nerves and retrobulbar fat: Normal. Upper aerodigestive tract: Normal. Mandible and bilateral temporomandibular joints: Normal. Soft tissues: Normal. CT Cervical Spine: Bones: No acute fracture or subluxation. Age-appropriate degenerative changes are present throughout the cervical spine. Soft Tissues: Unremarkable. Lung Apices: Emphysematous changes are seen in the lung apices. IMPRESSION: 1. No acute intracranial process. 2. No acute fracture or subluxation in the cervical spine. 3. Bilateral mildly displaced nasal bone fractures Radiologic Study #3: Imaging: X-Ray (Left tib-fib) Radiologist's impression: FINDINGS: BONES: No acute fracture is present. No bony destructive lesion is seen. Visualized portion of knee and ankle joints are unremarkable. SOFT TISSUE: Normal. IMPRESSION: No acute fracture or dislocation is present. Lab Data Lab results reviewed: Yes I reviewed the patient's lab results. Labs: Laboratory Tests Range/Units 11/04/24 09:55 WBC (4.4-10.8) 10^3/uL 6.53 RBC (4.36-5.78) 10^6/uL 4.54 Hgb (13.5-17.5) g/dL 14.0 Hct (40.0-50.0) % 42.2 MCV (80-95) fL 93 MCH (27.0-33.0) pg 30.8 MCHC (32.0-36.0) % 33.2 RDW (11.8-14.1) % 12.7 Plt Count (130-400) 10^3/uL 231 MPV (8.0-11.0) fL 9.0 Immature Gran % % 0.6 Neutrophils % % 70.8 Lymphocytes % % 17.9 Monocytes % % 6.4 Eosinophils % % 3.1 Basophils % % 1.2 Nucleated RBC % (0.0-0.3) % 0.0 Absolute Neutrophils (1.2-6.7) 10^3/uL 4.62 Absolute Lymphocytes (1.2-3.4) 10^3/uL 1.17 L Absolute Monocytes (0.1-0.8) 10^3/uL 0.42 Absolute Eosinophils (0.0-0.7) 10^3/uL 0.20 Absolute Basophils (0.0-0.2) 10^3/uL 0.08 PT (9.1-11.1) sec 9.7 INR (0.9-1.1) 1.0 Sodium (136-145) mmol/L 138 Potassium (3.5-5.1) mmol/L 4.2 Chloride (98-107) mmol/L 105 Carbon Dioxide (21.0-32.0) mmol/L 26.8 Anion Gap (3-11) mmol/L 6.2 BUN (7-18) mg/dL 12 Creatinine (0.70-1.30) mg/dL 0.8 Est GFR (CKD-EPI 2020) (mL/min/1.73m2) 100.69 Glucose (74-106) mg/dL 103 Calcium (8.5-10.1) mg/dL 8.4 L Total Bilirubin (0.2-1.0) mg/dL 0.3 AST (15-37) U/L 32 ALT (16-63) U/L 38 Alkaline Phosphatase (46-116) U/L 86 Total Protein (6.4-8.2) g/dL 7.1 Albumin (3.4-5.0) g/dL 3.9 Lipase (<78) U/L 42 PFSH <Jessica Zelaya NP - Last Filed: 11/04/24 15:25> All Active Problems (Updated 11/04/24 @ 12:34 by Jessica Zelaya NP) Multiple fractures of ribs of right side (Acute) Fracture of nasal bone (Acute) Closed fracture of rib of right side (Acute) Sensorineural hearing loss, bilateral (Acute) Nicotine dependence, cigarettes, uncomplicated (Acute) Tobacco user (Acute) Rotator cuff tear (Acute) Recurrent hernia (Acute) Inguinal hernia (Acute) Hallux limitus (Acute) Fracture (healed) treatment follow-up (Acute) COPD (chronic obstructive pulmonary disease) (Chronic) assessment test scale Conductive hearing loss, external ear (Acute) Impacted cerumen, bilateral (Acute) Puncture wound of left palm (Acute) Surgical History H/O foot surgery History of herniorrhaphy H/O knee surgery H/O colonoscopy Family History Mother Diabetes Myocardial infarction Father Myocardial infarction Social History Smoking/Tobacco Use Status: Current every day Tobacco Type: cigarettes Smoking risk assessment performed?: Yes Alcohol Intake: never Drug use: Never Substance use type: does not use Do you feel safe at home: Yes Do you feel safe in your relationship?: Yes POCUS Exam (ED) <Hosea Souza DO - Last Filed: 11/04/24 11:01> FAST Exam DATE OF EXAM: 11/04/24 TIME OF EXAM: 10:59 PROVIDER THAT PERFORMED THE STUDY: Hosea Souza REASON FOR EXAM: Abdominal pain and Blunt chest trauma VISUALIZED STRUCTURES: Hepatorenal space, Pelvis, Pericardium and Perisplenic space PERTINENT FINDINGS/IMPRESSION: no apparent abnormalities (Patient had an atypically small right kidney. Lungs also demonstrate good sliding) Limited Transthoracic Exam: Exam complete Limited Chest Exam: Exam complete Limited Abdominal Exam: Exam complete Limited Retroperitoneal Exam: Exam complete
[2024-11-04] MEDS: Ondansetron O.D.T. 4 MG TABEF PO (10:06)
[2024-11-04] MEDS: Cyclobenzaprine 10 MG TAB PO (10:06)
[2024-11-04 10:09] LABS: Abs Immature Grans 0.04 10^3/uL (0.0-0.06); HCT 42.2 % (40.0-50.0); HGB 14.0 g/dL (13.5-17.5); Immature Grans % 0.6 %; MCH 30.8 pg (27.0-33.0); MCHC 33.2 % (32.0-36.0); MCV 93 fL (80-95); MPV 9.0 fL (8.0-11.0); Platelet Count 231 10^3/uL (130-400); RBC 4.54 10^6/uL (4.36-5.78); RDW 12.7 % (11.8-14.1); RDW-SD 43.6 fL; WBC 6.53 10^3/uL (4.4-10.8)
[2024-11-04 10:19] LABS: INR 1.0 (0.9-1.1); Prothrombin Time 9.7 sec (9.1-11.1)
[2024-11-04 10:33] LABS: ALT 38 U/L (16-63); AST 32 U/L (15-37); Albumin 3.9 g/dL (3.4-5.0); Alkaline Phosphatase 86 U/L (46-116); Anion Gap 6.2 mmol/L (3-11); BUN 12 mg/dL (7-18); Bilirubin, Total 0.3 mg/dL (0.2-1.0); CO2 26.8 mmol/L (21.0-32.0); Calcium 8.4 mg/dL (8.5-10.1); Chloride 105 mmol/L (98-107); Estimated GFR 100.69 (mL/min/1.73m2); Glucose 103 mg/dL (74-106); Lipase 42 U/L (<78); Potassium 4.2 mmol/L (3.5-5.1); Sodium 138 mmol/L (136-145); Total Protein 7.1 g/dL (6.4-8.2)
[2024-11-04] MEDS: Omnipaque 350 MG/ML 500 ML BTL-Imaging package IJ (10:52)
[2024-11-04] MEDS: Normal Saline - Diluent 50 ML VIAL IJ (10:53)
[2024-11-04] MEDS: Lidocaine 5% Patch 1 PATCH TP (11:04)
[2024-11-04] MEDS: Lidocaine/Epinephri/Tetracaine Topical Gel 3 ML TP (11:04)
[2024-11-04] MEDS: ACETAMINOPHEN 1,000 MG/100 ML BAG 400 MG IVPB (11:04)
== END 2024-11-04 13:23 | disposition home or self-care (01) ==
PROVIDERS: Emergency Provider Registered Nurse Emergency; PCP Registered Nurse
DX: S22.41XA Multiple fractures of ribs, right side, initial encounter for closed fracture (principal); S02.2XXA Fracture of nasal bones, initial encounter for closed fracture; F17.210 Nicotine dependence, cigarettes, uncomplicated; W11.XXXA Fall on and from ladder, initial encounter; Y93.89 Activity, other specified; Y92.018 Other place in single-family (private) house as the place of occurrence of the external cause
CPT/HCPCS: 36415; 74177; 76604; 76705; 76857; 80053; 83690; 93308; 96365; 99285; 70450; 70486; 71260; 72125; 73590; 85025; 85610; J0131

== ENCOUNTER 2025-02-06 17:36 | Emergency (ER) | payer MEDICAID, SELFPAY ==
[2025-02-06 17:40] VITALS: BP 137/90; PULSE 97; RESP 16; O2SAT 97
--- NOTE | 2025-02-06 17:45 | DI.RAD_ITS ---
Exam(s) XR FOOT RT COMPLETE EXAM: XR FOOT RT COMPLETE CLINICAL HISTORY: pain s/p fall. TECHNIQUE: 2D digital imaging was performed. COMPARISON: No exams were available for comparison FINDINGS: 3 views There is a comminuted fracture of the calcaneus with associated mild height loss. The main fracture line extends to the sustentacular talus towards the sinus tarsi space. There are no fractures the talus. At the midfoot level there is a calcific density within the Lisfranc joint space with no offset of this joint. Other tarsometatarsal joints appear unremarkable as do the interphalangeal joints and metatarsophalangeal joints. IMPRESSION: Main findings is a comminuted fracture of the calcaneus. Other findings as above DATA REPOSITORY: RADIATION DOSE DELIVERED:
--- NOTE | 2025-02-06 17:45 | DI.RAD_ITS ---
Exam(s) XR ANKLE RT COMPLETE EXAM: XR ANKLE RT COMPLETE CLINICAL HISTORY: pain s/p fall. TECHNIQUE: 2D digital imaging was performed. COMPARISON: No exams were available for comparison FINDINGS: Three views There is a comminuted fracture of the calcaneus. Dominant fracture line extends from the inferior cortex to the sinus tarsi level. There also fractures in the posterior process of the calcaneus. No obvious talar fracture and talar dome appears unremarkable. There is no widening the ankle mortise. Os trigonum noted. IMPRESSION: Comminuted fracture of the calcaneus. DATA REPOSITORY: RADIATION DOSE DELIVERED:
--- NOTE | 2025-02-06 17:55 | ED.GENADUL_ITS ---
Discharge Plan Disposition Patient Disposition: Home Condition: Stable Discharge Details Clinical Impression: Calcaneus fracture, right Primary Care Provider: Carol Cardenas ED Provider: Nawaf Galan Home Meds and New Rx's Prescriptions: New morphine 15 mg tablet 15 mg PO Q8H PRNQty: 12 0RF Discontinued Stiolto Respimat 2.5-2.5 mcg/actuation mist 2 puff inhalation DAILY Qty: 4 12RF lidocaine 5 % adhesive patch,medicated 1 patch topical DAILY PRN (Reason: Rib Fractures) Qty: 15 0RF Rx Instructions: leave on most painful area for up to 12 hrs Discharge Instructions Additional Instructions: You have a broken heel bone which will likely require operative repair. Our orthopedic group is going to refer you to see an orthopedist at [facility]. You should receive a call for an appointment. You can take 1000 mg of acetaminophen every 6 hours and 600 mg of ibuprofen every 6 hours as well. If you have uncontrolled pain with this you can take 1 morphine tablet. If you are taking this every day you should take it daily stool softener such as docusate and/or a laxative such as MiraLAX. Make sure to keep your leg elevated when you are sitting or laying down. You should not be putting any weight on your leg. If you feel more ill or have severe worsening pain return to the emergency department for reevaluation. Stand Alone Forms: [facility] Prescribed Opioid Consent, Portal Information HPI General Date/Time Provider Initiated Documentation: 02/06/25 17:37 . Limitations to Documentation: no limitations . Information obtained by: patient . History of Present Illness 64 year old M presents to the emergency department with the chief complaint of right ankle pain s/p fall, described as moderate, Quality is described as aching, and is localized to the right and lower extremity. Patient reports no radiation. and it has been constant. No relieving factors improve symptom(s), No exacerbating factors reported . Patient notes no other symptoms.. Patient did receive the following treatments prior to arrival, none Related Data Home Medications ?Medication ?Instructions ?Recorded ?Confirmed morphine 15 mg immediate release 15 mg PO Q8H PRN #12 tabs 02/06/25 tablet Previous Rx's ?Medication ?Instructions ?Recorded morphine 15 mg immediate release 15 mg PO Q8H PRN #12 tabs 02/06/25 tablet Allergies Allergy/AdvReac Type Severity Reaction Status Date / Time No Known Allergies Allergy Unverified 02/06/25 17:44 General Stated Complaint: Fall/Non TraumaCriteria ABDON: 4 Review of Systems All systems reviewed & are unremarkable except as noted in HPI and below Constitutional Constitutional: Denies chills, Denies fever(s) and Denies weakness Gastrointestinal Gastrointestinal: Denies abdominal pain, Denies nausea and Denies vomiting Neurologic Neurologic: Denies weakness Exam Const General: no acute distress Orientation: alert [facility] Head: no palpable skull fracture Ears: external ears normal General nose exam: external nose normal Mouth: moist mucous membranes Eyes General: appearance normal, both eyes and all related structures Neck Neck: normal visual inspection Resp Effort & Inspection: normal respiratory effort and able to speak in complete sentences Cardio Rate: regular rate GI Palpation: soft and nontender Skin General skin exam: no rashes or lesions noted Neuro General: patient alert and patient oriented x3 Extrem General: normal to inspection Psych Mental Status: mental status grossly normal Course Vital Signs Vital signs: Vital Signs Pulse 97 H 02/06/25 17:40 Respiratory Rate 16 02/06/25 17:40 Blood Pressure 137/90 02/06/25 17:40 Pulse Oximetry 97 02/06/25 17:40 Temperature Source Oral 02/06/25 17:40 Pulse 97 H 02/06/25 17:40 Respiratory Rate 16 02/06/25 17:40 Blood Pressure 137/90 02/06/25 17:40 Blood Pressure Position Sitting 02/06/25 17:40 Pulse Oximetry 97 02/06/25 17:40 Oxygen Delivery Method Room Air 02/06/25 17:40 Oxygen Flow Rate 0 02/06/25 17:40 Pain Level 10 02/06/25 17:40 Procedure Orthopedic Splinting/Casting Patient Consented: Verbally Lower Extremity Injury Location: ankle Lower Extremity Immobilizer: posterior splint Weight bearing status: non-weight bearing as tolerated Other Orthopedic Equipment: crutches (patient has his own pair to use) Medical Decision Making 64-year-old male with a history of COPD and chronic smoker comes in after he was on a ladder approximately 6 feet up when it slid out and he landed on his right ankle. He denies loss of consciousness, no nausea or vomiting. This happened on 4:00 tonight. He has pain in his right ankle and also his foot. Denies any headaches though he does have a bruise on the right forehead. No scalp hematomas, no midline C-spine T-spine or L-spine tenderness, no chest or abdomen tenderness. He has tenderness over the medial and lateral malleolus of the right ankle and midfoot. He has limited range of motion of the ankle due to pain. He has intact sensation. No tenderness elsewhere in the leg. He denies any headaches. He declines to have a head CT which I feel is reasonable given he has no headaches or nausea or vomiting. Will obtain x-rays of the right ankle and foot. Patient stable, pain well-controlled with ibuprofen. X-ray shows a calcaneus fracture, on-call orthopedist advised to obtain a CT for further evaluation. Patient stable, CT reviewed and Dr. Choi will refer him to department for operative repair as an outpatient. Patient is stable and I placed him in a posterior leg splint and he tolerated well and had intact csmt's. Return precautions given. Differential Diagnosis Differential Diagnosis: fracture,contusion,sprain PFSH All Active Problems (Updated 02/06/25 @ 19:33 by Nawaf Galan MD) Calcaneus fracture, right (Acute) Multiple fractures of ribs of right side (Acute) Sensorineural hearing loss, bilateral (Acute) Nicotine dependence, cigarettes, uncomplicated (Acute) Tobacco user (Acute) Rotator cuff tear (Acute) Recurrent hernia (Acute) Inguinal hernia (Acute) Hallux limitus (Acute) Fracture (healed) treatment follow-up (Acute) COPD (chronic obstructive pulmonary disease) (Chronic) assessment test scale Conductive hearing loss, external ear (Acute) Impacted cerumen, bilateral (Acute) Puncture wound of left palm (Acute) Surgical History H/O foot surgery History of herniorrhaphy H/O knee surgery H/O colonoscopy Family History Mother Diabetes Myocardial infarction Father Myocardial infarction Social History Smoking/Tobacco Use Status: Current every day Tobacco Type: cigarettes Years smoked: 50 Smoking risk assessment performed?: Yes Alcohol Intake: never Drug use: Never Substance use type: does not use Do you feel safe at home: Yes Do you feel safe in your relationship?: Yes
[2025-02-06] MEDS: Ibuprofen 600 MG TAB PO (18:05)
--- NOTE | 2025-02-06 18:30 | DI.CT_ITS ---
Exam(s) CT LOWER EXTREMITY RT WO EXAM: CT LOWER EXTREMITY RT WO CLINICAL HISTORY: calcaneus fracture. TECHNIQUE: Imaging Protocol: Axial computed tomography images with coronal and sagittal reformatted images were created and reviewed. CONTRAST MATERIAL: Intravenous: None COMPARISON: Plain x-rays seen the reviewed FINDINGS: OSSEOUS: There is a comminuted fracture of the calcaneus involving posterior, mid, and anterior process is of the calcaneus and extending from inferior to superior cortex at multiple levels, including at the sinus tarsi space. There is no evidence of fracture of talus nor the cuboid. The fracture line also extends into the calcaneocuboid articulation but there is no obvious fracture of the cuboid bone. Tarsometatarsal joints are unremarkable including the main Lisfranc joint. In there is a corticated accessory ossicle at this level which corresponds what is described on the plain films. There is no fracture at this level. No metatarsal fractures. There also no phalangeal fractures. IMPRESSION: Severe comminuted calcaneus fracture involving the all cortices inferiorly, anteriorly, posteriorly, and medially extending through the sustentacular talus. Anteriorly the fracture line extends into the calcaneocuboid joint. Posteriorly the fracture lines extend to the posterior cortex and through the superior cortex. Report called by myself to ER physician 02/06/2025 at 7:05 p.m. RADIATION DOSE DELIVERED: 100.46mGy.cm Total DLP DATA REPOSITORY: All CT scans at this facility are submitted to the National Radiology Data Registry (NRDR) Dose Index Registry (DIR) with the [employer] (A[employer]). RADIATION OPTIMIZATION: All CT scans at this facility use at least one of these dose optimization techniques: automated exposure control; mA and/or kV adjustment per patient size (includes targeted exams where dose is matched to clinical indication); or iterative reconstruction.
[2025-02-06] MEDS: Acetaminophen 500 MG TAB 1000 MG PO (19:34)
[2025-02-06] MEDS: MORPHine IR 15 MG TAB, 4 TABS/BTL PO (19:52)
[2025-02-06 20:05] VITALS: BP 108/73; PULSE 92; RESP 16; O2SAT 95
--- NOTE | 2025-02-07 14:43 | NUR.NOTE ---
Chart was accessed to see if referral was put in Nursing Note:
--- NOTE | 2025-02-07 16:12 | NUR.NOTE ---
Chart was open to look for information for referral to [facility] [place]. Barraza Nursing Note:
== END 2025-02-06 19:34 | disposition home or self-care (01) ==
PROVIDERS: Emergency Provider Emergency Medicine; PCP Registered Nurse
DX: S92.001A Unspecified fracture of right calcaneus, initial encounter for closed fracture (principal); W19.XXXA Unspecified fall, initial encounter
CPT/HCPCS: 99284 ×2; 29515; 73610; 73630; 73700